=== PATIENT | male | born 1980 | race Caucasian/White ===

== ENCOUNTER 2016-05-30 20:40 | Emergency (ER) | payer OTHER ==
--- NOTE | 2016-05-30 21:57 | EDDOCDS ---
Physician Documentation [facility] Name: Dewayne Chan Age: 35 yrs Sex: Male : 1980 Arrival Date: 05/30/2016 Time: 20:40 Bed D2 Private MD: NO PRIMARY PHYSICIAN, . Disposition: 05/30/16 21:48 Discharged to Home/Self Care. Impression: Laceration of blood vessel of left index finger. - Condition is Stable. - Discharge Instructions: Deep Skin Avulsion. - Medication Reconciliation, Local Pharmacy Hours form. - [facility]; When: As needed; Reason: Continuance of care. - Problem is new. - Symptoms have improved. Historical: - Allergies: PENICILLINSunsure; - Home Meds: 1. none - PMHx: none; - PSHx: Appendectomy; Hernia repair; - Social history: Smoking status: Patient states former smoker of tobacco. No barriers to communication noted, The patient speaks fluent Belarusian, Speaks appropriately for age, Preferred Language: Belarusian. - Family history: Not pertinent. - : The pt / caregiver states he / she is not on anticoagulants. Home medication list is obtained from the patient. - Exposure Risk Screening:: None identified. Vital Signs: 05/30 20:42 BP 128 / 80; Pulse 83; Resp 18 S; Temp 98.1(O); Pulse Ox 99% on R/A; Weight 99.79 kg / gr2 220 lbs (R); Height 5 ft. 11 in. (180.34 cm) (R); Pain 2/10; 21:51 BP 144 / 76; Pulse 70; Resp 18; Temp 97.7(T); Pulse Ox 98% on R/A; Pain 0/10; vito 20:42 Body Mass Index 30.68 (99.79 kg, 180.34 cm) gr2 Signatures: Nithin Mckeon, Leidy EspinoRN RN lf1 Lisset Dupont RN RN ko2 MTDD
--- NOTE | 2016-05-30 21:57 | EDDOCDS ---
Nurse's Notes [facility] Name: Dewayne Chan Age: 35 yrs Sex: Male : 1980 Arrival Date: 05/30/2016 Time: 20:40 Bed D2 Private MD: NO PRIMARY PHYSICIAN, . Diagnosis: Laceration of blood vessel of left index finger Presentation: 05/30 20:47 Presenting complaint: Patient states: Was using a vegetable antionette tonight at 1830 and lf1 sliced off the tip of his left index finger. Unable to get the bleeding to stop at home. Adult Sepsis Screening: The patient does not have new or worsening altered mentation. Patient's respiratory rate is less than 22. Systolic blood pressure is greater than 100. Patient has a qSOFA score of 0- Negative Sepsis Screen. Suicide/Homicide risk assessment- the patient denies having any suicidal and/or homicidal ideations and does not present with any other emotional, behavioral or mental health complaints. Status: Patient is not a extension service specialist in charge or dependent. Transition of care: patient was not received from another setting of care. 20:47 Acuity: ROSA Level 4 lf1 20:47 Method Of Arrival: Walkin/Carried/Asstd lf1 Triage Assessment: 20:50 General: Appears in no apparent distress, comfortable, Behavior is cooperative. Pain: lf1 Location: left hand Pain currently is 2 out of 10 on a pain scale. Pt Declines HIV testing. Neurological: Level of Consciousness is awake, alert, Oriented to person, place, time. EENT: No deficits noted. Respiratory: Respiratory effort is even, unlabored. GI: Denies nausea, vomiting. Derm: Dressing to tip of left index finger in place. Historical: - Allergies: PENICILLINSunsure; - Home Meds: 1. none - PMHx: none; - PSHx: Appendectomy; Hernia repair; - Social history: Smoking status: Patient states former smoker of tobacco. No barriers to communication noted, The patient speaks fluent British, Speaks appropriately for age, Preferred Language: British. - Family history: Not pertinent. - : The pt / caregiver states he / she is not on anticoagulants. Home medication list is obtained from the patient. - Exposure Risk Screening:: None identified. Screenin:52 Screening information is obtained from the patient. Fall risk: No risks identified. lf1 Assistance ADL's: requires no assistance with activities of daily living. Abuse/DV Screen: The patient / caregiver reports he/she is: not in a situation that causes fear, pain or injury. Nutritional screening: No deficits noted. Advance Directives: Currently, there is no health care proxy. There is no active DNR order. home support is adequate. Assessment: 21:30 General: Appears in no apparent distress, Behavior is appropriate for age, cooperative. ko2 Neurological: Level of Consciousness is awake, alert. Respiratory: Airway is patent Respiratory effort is even, unlabored. Derm: Reports bleeding. Musculoskeletal: Range of motion intact in all extremities. Vital Signs: 20:42 BP 128 / 80; Pulse 83; Resp 18 S; Temp 98.1(O); Pulse Ox 99% on R/A; Weight 99.79 kg gr2 (R); Height 5 ft. 11 in. (180.34 cm) (R); Pain 2/10; 21:51 BP 144 / 76; Pulse 70; Resp 18; Temp 97.7(T); Pulse Ox 98% on R/A; Pain 0/10; vito 20:42 Body Mass Index 30.68 (99.79 kg, 180.34 cm) gr2 Vitals: 20:42 Log In Time: May 30, 2016 at 20:42. gr2 ED Course: 20:41 Patient visited by Cameron Montaño. gr2 20:41 NO PRIMARY PHYSICIAN, . is Private Physician. gr2 20:41 Patient moved to Waiting gr2 20:43 Patient visited by Cameron Montaño. gr2 20:43 Patient moved to Pre RCE gr2 20:49 Triage Initiated lf1 21:27 Lisset Dupont,RN is Primary Nurse. ms18 21:27 Nithin Mckeon FNP is PHCP. ke 21:27 Patient visited by Nithin Mckeon FNP. ke 21:27 Patient visited by Nithin Mckeon FNP. ke 21:27 Patient moved to 9 ms18 21:47 [facility] is Referral Physician. ke 21:51 Patient visited by Imelda Spain PCA. vito 21:53 Patient moved to D2 vito 21:55 The patient / caregiver is instructed regarding the plan of care and ED course. ko2 21:55 No IV's were initiated during this patient's visit. No procedures done that require ko2 assistance. Order Results: There are currently no results for this order. Outcome: 21:48 Discharge ordered by Provider. jd 21:55 Discharge Assessment: Patient awake, alert and oriented x 3. No cognitive and/or ko2 functional deficits noted. Patient verbalized understanding of disposition instructions. patient administered narcotics - no. The following High Risk Discharge criteria are identified: None. Discharged to home ambulatory. Condition: stable. Discharge instructions given to patient, Instructed on discharge instructions, follow up and referral plans. Demonstrated understanding of instructions, Pt was receptive of discharge instructions/ teaching. No special radiology studies were completed. Property sent home with patient. 21:56 Patient left the ED. ko2 Signatures: Nithin Mckeon, PSYCHOLOGIST RESEARCH ASSISTANT PSYCHOLOGIST RESEARCH ASSISTANT Leidy JimenezRN RN lf1 Imelda Spain, HISTORIAN DRAMATIC ARTS HISTORIAN DRAMATIC ARTS Cameron Barraza gr2 Lisset Dupont,RN RN ko2 Leonarda Hinojosa,RN RN ms18 MTDD
--- NOTE | 2016-06-01 22:56 | EDDOCDS ---
[facility] Name: Dewayne Chan Age: 35 yrs Sex: Male : 1980 Arrival Date: 05/30/2016 Time: 20:40 Bed D2 Private MD: NO PRIMARY PHYSICIAN, . Diagnosis: Laceration of blood vessel of left index finger Presentation: 05/30 20:47 Presenting complaint: Patient states: Was using a vegetable antionette tonight at 1830 and lf1 sliced off the tip of his left index finger. Unable to get the bleeding to stop at home. Adult Sepsis Screening: The patient does not have new or worsening altered mentation. Patient's respiratory rate is less than 22. Systolic blood pressure is greater than 100. Patient has a qSOFA score of 0- Negative Sepsis Screen. Suicide/Homicide risk assessment- the patient denies having any suicidal and/or homicidal ideations and does not present with any other emotional, behavioral or mental health complaints. Status: Patient is not a vp celebrity services or dependent. Transition of care: patient was not received from another setting of care. 20:47 Acuity: ROSA Level 4 lf1 20:47 Method Of Arrival: Walkin/Carried/Asstd lf1 Triage Assessment: 20:50 General: Appears in no apparent distress, comfortable, Behavior is cooperative. Pain: lf1 Location: left hand Pain currently is 2 out of 10 on a pain scale. Pt Declines HIV testing. Neurological: Level of Consciousness is awake, alert, Oriented to person, place, time. EENT: No deficits noted. Respiratory: Respiratory effort is even, unlabored. GI: Denies nausea, vomiting. Derm: Dressing to tip of left index finger in place. Historical: - Allergies: PENICILLINSunsure; - Home Meds: 1. none - PMHx: none; - PSHx: Appendectomy; Hernia repair; - Social history: Smoking status: Patient states former smoker of tobacco. No barriers to communication noted, The patient speaks fluent Burmese, Speaks appropriately for age, Preferred Language: Burmese. - Family history: Not pertinent. - : The pt / caregiver states he / she is not on anticoagulants. Home medication list is obtained from the patient. - Exposure Risk Screening:: None identified. Screenin:52 Screening information is obtained from the patient. Fall risk: No risks identified. lf1 Assistance ADL's: requires no assistance with activities of daily living. Abuse/DV Screen: The patient / caregiver reports he/she is: not in a situation that causes fear, pain or injury. Nutritional screening: No deficits noted. Advance Directives: Currently, there is no health care proxy. There is no active DNR order. home support is adequate. Assessment: 21:30 General: Appears in no apparent distress, Behavior is appropriate for age, cooperative. ko2 Neurological: Level of Consciousness is awake, alert. Respiratory: Airway is patent Respiratory effort is even, unlabored. Derm: Reports bleeding. Musculoskeletal: Range of motion intact in all extremities. Vital Signs: 20:42 BP 128 / 80; Pulse 83; Resp 18 S; Temp 98.1(O); Pulse Ox 99% on R/A; Weight 99.79 kg gr2 (R); Height 5 ft. 11 in. (180.34 cm) (R); Pain 2/10; 21:51 BP 144 / 76; Pulse 70; Resp 18; Temp 97.7(T); Pulse Ox 98% on R/A; Pain 0/10; vito 20:42 Body Mass Index 30.68 (99.79 kg, 180.34 cm) gr2 Vitals: 20:42 Log In Time: May 30, 2016 at 20:42. gr2 ED Course: 20:41 Patient visited by Cameron Montaño. gr2 20:41 NO PRIMARY PHYSICIAN, . is Private Physician. gr2 20:41 Patient moved to Waiting gr2 20:43 Patient visited by Cameron Montaño. gr2 20:43 Patient moved to Pre RCE gr2 20:49 Triage Initiated lf1 21:27 Lisset Dupont,RN is Primary Nurse. ms18 21:27 Nithin Mckeon FNP is PHCP. ke 21:27 Patient visited by Nithin Mckeon FNP. ke 21:27 Patient visited by Nithin Mckeon FNP. ke 21:27 Patient moved to 9 ms18 21:47 [facility] is Referral Physician. ke 21:51 Patient visited by Imelda Spain PCA. vito 21:53 Patient moved to D2 vito 21:55 The patient / caregiver is instructed regarding the plan of care and ED course. ko2 21:55 No IV's were initiated during this patient's visit. No procedures done that require ko2 assistance. 21:59 [facility] [place] was scanned into [employer] and attached to record. [email or web address] 05/31 09:40 T-Sheet-- Draft Copy was scanned into Tweet[employer] and attached to record. gb Order Results: There are currently no results for this order. Outcome: 05/30 21:48 Discharge ordered by Provider. jd 21:55 Discharge Assessment: Patient awake, alert and oriented x 3. No cognitive and/or ko2 functional deficits noted. Patient verbalized understanding of disposition instructions. patient administered narcotics - no. The following High Risk Discharge criteria are identified: None. Discharged to home ambulatory. Condition: stable. Discharge instructions given to patient, Instructed on discharge instructions, follow up and referral plans. Demonstrated understanding of instructions, Pt was receptive of discharge instructions/ teaching. No special radiology studies were completed. Property sent home with patient. 21:56 Patient left the ED. ko2 Signatures: Linda Rolon, Reg Reg gb Nithin Mckeon, TAX ASSISTANT TAX ASSISTANT Leidy Jimenez,RN RN lf1 Imelda Spain, LAYBOY OPERATOR LAYBOY OPERATOR vito Cameron Montaño gr2 Lisset Dupont,RN RN ko2 Leonarda Hinojosa,RN RN ms18 Nikki Rosas Chart Complete MTDD
--- NOTE | 2016-06-01 22:56 | EDDOCDS ---
Physician Documentation [facility] Name: Dewayne Chan Age: 35 yrs Sex: Male : 1980 Arrival Date: 05/30/2016 Time: 20:40 Bed D2 Private MD: NO PRIMARY PHYSICIAN, . Disposition: 05/30/16 21:48 Discharged to Home/Self Care. Impression: Laceration of blood vessel of left index finger. - Condition is Stable. - Discharge Instructions: Deep Skin Avulsion. - Medication Reconciliation, Local Pharmacy Hours form. - Follow up: [facility]; When: As needed; Reason: Continuance of care. - Problem is new. - Symptoms have improved. Historical: - Allergies: PENICILLINSunsure; - Home Meds: 1. none - PMHx: none; - PSHx: Appendectomy; Hernia repair; - Social history: Smoking status: Patient states former smoker of tobacco. No barriers to communication noted, The patient speaks fluent Belizean, Speaks appropriately for age, Preferred Language: Belizean. - Family history: Not pertinent. - : The pt / caregiver states he / she is not on anticoagulants. Home medication list is obtained from the patient. - Exposure Risk Screening:: None identified. Vital Signs: 05/30 20:42 BP 128 / 80; Pulse 83; Resp 18 S; Temp 98.1(O); Pulse Ox 99% on R/A; Weight 99.79 kg / gr2 220 lbs (R); Height 5 ft. 11 in. (180.34 cm) (R); Pain 2/10; 21:51 BP 144 / 76; Pulse 70; Resp 18; Temp 97.7(T); Pulse Ox 98% on R/A; Pain 0/10; vito 20:42 Body Mass Index 30.68 (99.79 kg, 180.34 cm) gr2 MDM: 21:59 [facility] Payment Agreement was scanned into [employer] and attached to record. [facility] 21:59 Financial registration complete. b 05/31 09:40 T-Sheet-- Draft Copy was scanned into [employer] and attached to record. Signatures: Linda Rolon, Reg Reg gb Nithin Mckeon, HAND I BLOCKER HAND I BLOCKER Leidy JimenezRN RN lf1 Lisset Dupont,RN RN ko2 Nikki Rosas The chart was reviewed and I authenticate all verbal orders and agree with the evaluation and treatment provided.Attachments: 05/30 21:59 [facility] [place] Payment Agreement [email or web address] 05/31 09:40 T-Sheet-- Draft Copy gb Chart Complete MTDD
--- NOTE | 2016-06-01 22:56 | EDDOCDS ---
Physician Documentation [facility] Name: Dewayne Chan Age: 35 yrs Sex: Male : 1980 Arrival Date: 05/30/2016 Time: 20:40 Bed D2 Private MD: NO PRIMARY PHYSICIAN, . Disposition: 05/30/16 21:48 Discharged to Home/Self Care. Impression: Laceration of blood vessel of left index finger. - Condition is Stable. - Discharge Instructions: Deep Skin Avulsion. - Medication Reconciliation, Local Pharmacy Hours form. - Follow up: [facility]; When: As needed; Reason: Continuance of care. - Problem is new. - Symptoms have improved. Historical: - Allergies: PENICILLINSunsure; - Home Meds: 1. none - PMHx: none; - PSHx: Appendectomy; Hernia repair; - Social history: Smoking status: Patient states former smoker of tobacco. No barriers to communication noted, The patient speaks fluent Togolese, Speaks appropriately for age, Preferred Language: Togolese. - Family history: Not pertinent. - : The pt / caregiver states he / she is not on anticoagulants. Home medication list is obtained from the patient. - Exposure Risk Screening:: None identified. Vital Signs: 05/30 20:42 BP 128 / 80; Pulse 83; Resp 18 S; Temp 98.1(O); Pulse Ox 99% on R/A; Weight 99.79 kg / gr2 220 lbs (R); Height 5 ft. 11 in. (180.34 cm) (R); Pain 2/10; 21:51 BP 144 / 76; Pulse 70; Resp 18; Temp 97.7(T); Pulse Ox 98% on R/A; Pain 0/10; vito 20:42 Body Mass Index 30.68 (99.79 kg, 180.34 cm) gr2 MDM: 21:59 [facility] Payment Agreement was scanned into [employer] and attached to record. [facility] 21:59 Financial registration complete. b 05/31 09:40 T-Sheet-- Draft Copy was scanned into [employer] and attached to record. Signatures: Linda Rolon, Reg Reg gb Nithin Mckeon, CONTRACTOR BROOMCORN THRESHING CONTRACTOR BROOMCORN THRESHING Leidy JimenezRN RN lf1 Lisset Dupont,RN RN ko2 Nikki Rosas The chart was reviewed and I authenticate all verbal orders and agree with the evaluation and treatment provided.Attachments: 05/30 21:59 [facility] [place] Agreement [email or web address] 05/31 09:40 T-Sheet-- Draft Copy gb Chart Complete MTDD
== END 2016-05-30 21:56 | disposition home or self-care (01) ==
LOC: M ED 20:40
DX: S61.211A Laceration without foreign body of left index finger without damage to nail, initial encounter (principal); W45.8XXA Other foreign body or object entering through skin, initial encounter; Y92.019 Unspecified place in single-family (private) house as the place of occurrence of the external cause; Y93.G1 Activity, food preparation and clean up; Y99.8 Other external cause status; Z90.89 Acquired absence of other organs; Z87.891 Personal history of nicotine dependence; Z88.0 Allergy status to penicillin